=== PATIENT | male | born 1955 | race Caucasian/White ===

== ENCOUNTER → 2017-12-21 09:56 | Outpatient (CLI) | payer OTHER, SELFPAY ==
--- NOTE | 2017-12-21 09:57 | DI.RAD.S_ITS ---
PROCEDURE: XR KNEE LT 3V INDICATIONS: knee pain TECHNIQUE: 3 views of the knee were acquired. COMPARISON: [facility], , XR KNEE 3V LEFT, 09/27/2005, 10:37. FINDINGS: Bones: Fracture involving the superior and lateral margin of the patella is noted which is of indeterminate age. No suspicious bony lesions. Mild tricompartmental osteoarthritic degenerative changes. Soft tissues: No joint effusion. No suspicious soft tissue calcifications. IMPRESSION: 1. Patellar fracture of indeterminate chronicity. Please correlate with clinical findings. 2. Tricompartmental osteoarthritis. Dictated by: Radhika Botello MD, PhD on 12/21/2017 at 10:44 Approved by: Radhkia Botello MD, PhD on 12/21/2017 at 10:45
== END ==
PROVIDERS: PCP Family Medicine; Visit Provider Family Medicine
DX: S82.002A Unspecified fracture of left patella, initial encounter for closed fracture (principal); M17.12 Unilateral primary osteoarthritis, left knee; M25.562 Pain in left knee
CPT/HCPCS: 73562

== ENCOUNTER → 2018-01-02 07:22 | Outpatient (CLI) | payer OTHER, SELFPAY ==
--- NOTE | 2018-01-02 07:23 | DI.MRI.S_ITS ---
PROCEDURE: MR KNEE LT WO CON INDICATIONS: knee pain TECHNIQUE: Noncontrast sagittal PD fast spin echo and T2 fast spin echo with fat saturation, sagittal 3-D FLASH with fat saturation; coronal T1 spin echo and PD fast spin echo with fat saturation, and axial PD fast spin echo with fat saturation through the knee. COMPARISON: [facility], RG, XR KNEE 3V LEFT, 09/27/2005, 10:37. [facility], CR, XR KNEE LT 3V, 12/21/2017, 9:41. [facility], MR, KNEE WITH CONTRAST, 06/26/2015, 10:03. FINDINGS: Image quality: Excellent. Menisci: There is medial meniscal extrusion. There is large horizontal tear involving the posterior horn and body of the medial meniscus. The lateral meniscus demonstrates normal morphology and internal signal. The meniscal root ligaments appear intact. Cruciate ligaments: There may be partial tear involving the anterior medial bundle of the anterior cruciate ligament. The posterior cruciate ligament appears intact. Medial structures: There is grade 2 sprain of the anterior superior aspect of the medial collateral ligament. The meniscocapsular junction appear intact. Visualized portions of the pes anserinus tendons appear normal. No abnormal bursal fluid. Lateral structures: The lateral collateral ligament, long and short heads of the biceps femoris tendon appear intact. The popliteus tendon appears normal; the popliteofibular ligament appears intact. The posterosuperior and anteroinferior popliteomeniscal fascicles appear intact. The arcuate and fabellofibular ligaments appear intact, on either side of the lateral inferior geniculate artery. Iliotibial band appears normal. Anterior structures: The quadriceps and patellar tendons appear intact. Patellar alignment is normal. No femoral trochlear dysplasia or ventral trochlear prominence. No edema in the infrapatellar fat pad. Bones and cartilage: There is old patellar fracture in the superolateral aspect of patella with corticated fragments. There is no associated bone marrow contusions. There is marrow contusion in the medial femoral condyle. Full thickness cartilage defect is present in the weightbearing portion of the medial femoral condyle is present. There is mild cartilage thinning and fibrillation involving the lateral femorotibial compartment, as well as the patellofemoral compartment. Joint space: There is moderate knee joint effusion. No Dominguez's cyst. Normal appearing synovial plicae are incidentally noted. IMPRESSION: 1. Large tear of the posterior horn and body of the medial meniscus. 2. Suspect partial thickness tear of the anterior cruciate ligament involving the anteromedial bundle. 3. Grade 2 sprain sprain of the medial collateral ligament. 4. Bone marrow edema in the medial femoral condyle. 5. Old patellar fracture. 6. Full-thickness cartilage defect in the weightbearing portion of the medial femoral condyle. 7. Moderate knee joint effusion. Dictated by: Bello Hammer M.D. on 01/02/2018 at 10:25 Transcribed by: SÁNCHEZ on 01/02/2018 at 10:36 Approved by: Bello Hammer M.D. on 01/02/2018 at 18:23
== END ==
PROVIDERS: Family Provider Family Medicine; PCP Family Medicine; Visit Provider Family Medicine
DX: S83.242A Other tear of medial meniscus, current injury, left knee, initial encounter (principal); S83.412A Sprain of medial collateral ligament of left knee, initial encounter; M25.462 Effusion, left knee; M25.562 Pain in left knee
CPT/HCPCS: 73721

== ENCOUNTER → 2018-03-23 07:02 | Outpatient (CLI) | payer OTHER, SELFPAY ==
[2018-03-23 08:26] LABS: Cholesterol 186 mg/dL (140-199); HDL Cholesterol 48 mg/dL (40-60); LDL Cholesterol Calculated 118 mg/dL (<100); Triglycerides 99 mg/dL (35-150)
== END ==
PROVIDERS: PCP Family Medicine; Visit Provider Family Medicine
DX: E78.2 Mixed hyperlipidemia (principal)
CPT/HCPCS: 36415; 80061

== ENCOUNTER → 2018-12-21 07:24 | Outpatient (CLI) | payer OTHER, SELFPAY ==
[2018-12-21 09:00] LABS: Cholesterol 173 mg/dL (140-199); HDL Cholesterol 41 mg/dL (40-60); LDL Cholesterol Calculated 103 mg/dL (<100); Triglycerides 146 mg/dL (35-150)
== END ==
PROVIDERS: PCP Family Medicine; Visit Provider Family Medicine
DX: E78.2 Mixed hyperlipidemia (principal)
CPT/HCPCS: 36415; 80061

== ENCOUNTER → 2020-11-20 07:12 | Outpatient (CLI) | payer OTHER, SELFPAY ==
[2020-11-20 07:59] LABS: Add Manual Diff / Slide Review NO; Basophils Absolute Auto 100 /uL (0-100); Basophils Percent Auto 1.1 % (0-2); Eosinophils Absolute Auto 500 /uL (0-450); Eosinophils Percent Auto 8.5 % (2-4); Hematocrit 42.2 % (41-53); Hemoglobin 14.3 g/dL (13.5-17.5); Lymphocytes Absolute Auto 1300 /uL (1100-4500); Lymphocytes Percent Auto 23.9 % (25-40); Mean Corpuscular Hemoglobin 29.3 PG (26-34); Mean Corpuscular Volume 86.3 fL (80-100); Monocytes Absolute Auto 400 /uL (0-900); Monocytes Percent Auto 6.8 % (3-14); Neutrophils Absolute Auto 3300 /uL (1500-7000); Neutrophils Percent Auto 59.7 % (50-75); Platelet Count 207 X10^3/uL (150-400); Red Blood Cell Count 4.89 X10^6/uL (4.5-5.9); Red Cell Distribution Width 13.3 % (11.6-14.8); White Blood Cell Count 5.6 X10^3/uL (4.5-11.0)
[2020-11-20 08:04] LABS: Hemoglobin A1C% w Est Avg Glu 5.4 % (4.0-6.0)
[2020-11-20 08:27] LABS: Alanine Aminotransferase 24 IU/L (<50); Albumin 4.2 g/dL (3.5-5.0); Albumin Globulin Ratio 1.5 (1.0-2.8); Alkaline Phosphatase 86 U/L (38-126); Aspartate Aminotransferase 35 IU/L (17-59); BUN Creatinine Ratio 23.3 (6-22); Bilirubin Total 0.5 mg/dL (0.2-1.3); Blood Urea Nitrogen 20 mg/dL (9-20); Calcium 9.6 mg/dL (8.4-10.2); Carbon Dioxide 27 mmol/L (22-32); Chloride 105 mmol/L (98-107); Cholesterol 211 mg/dL (140-199); Estimated Glomerular Filt Rate > 60.0 mL/min (>60); Globulin 2.8 g/dL (1.7-4.1); Glucose 101 mg/dL (80-110); HDL Cholesterol 55 mg/dL (40-60); HEMOLYSIS < 15 (0-50); LDL Cholesterol Calculated 134 mg/dL (<100); Potassium 5.2 mmol/L (3.4-5.1); Sodium 138 mmol/L (137-145); Triglycerides 109 mg/dL (35-150)
[2020-11-20 08:51] LABS: Prostate Specific Antigen Scrn 1.73 ng/mL (0.1-4.0)
== END ==
PROVIDERS: PCP Family Medicine; Referring Provider Family Medicine; Visit Provider Family Medicine
DX: E78.2 Mixed hyperlipidemia (principal); G62.9 Polyneuropathy, unspecified; Z12.5 Encounter for screening for malignant neoplasm of prostate
CPT/HCPCS: 36415; 80053; 80061; 83036; 85025; G0103

== ENCOUNTER → 2020-11-24 07:58 | Outpatient (CLI) | payer OTHER, SELFPAY ==
[2020-11-25 14:08] LABS: Fecal Immunochemical Test Negative (Negative)
== END ==
PROVIDERS: PCP Family Medicine; Referring Provider Family Medicine; Visit Provider Family Medicine
DX: Z12.11 Encounter for screening for malignant neoplasm of colon (principal)
CPT/HCPCS: 82274

== ENCOUNTER → 2022-05-24 15:59 | Outpatient (CLI) | payer OTHER, SELFPAY ==
--- NOTE | 2022-05-24 16:00 | DI.RAD.S_ITS ---
PROCEDURE: XR LUMBAR SPINE MIN 4V INDICATIONS: polyneuropathy, chronic low back pain TECHNIQUE: 5 views of the lumbar spine were acquired, including bilateral oblique views. COMPARISON: None. FINDINGS: Bones: 5 nonrib-bearing vertebrae are present. There is trace, approximately 3 millimeters of L2-L3 retrolisthesis. No vertebral body compression fractures. No suspicious bony lesions. Moderate L5-S1 degenerative disc disease. Mild L1-L2, L2-L3, L3-L4 and L4-L5 degenerative disc disease. Moderate L4-L5 and L5-S1 facet hypertrophy. Mild L3-L4 facet hypertrophy. Soft tissues: Overlying bowel gas pattern is normal. No suspicious soft tissue calcifications. Oblique images: Right L5 pars interarticularis defect. IMPRESSION: 1. Multilevel degenerative disc disease. 2. Multilevel facet arthropathy. 3. No acute fracture. No acute osseous lesion. If symptoms and/or clinical suspicion for pathology persists, evaluation with MRI should be considered for further assessment. 4. Right L5 pars interarticularis defect. Dictated by: Radhika Botello MD, PhD on 05/24/2022 at 16:34 Approved by: Radhika Botello MD, PhD on 05/24/2022 at 16:36
== END ==
PROVIDERS: PCP Family Medicine; Referring Provider Family Medicine; Visit Provider Family Medicine
DX: M51.36 Other intervertebral disc degeneration, lumbar region (principal); M51.37 Other intervertebral disc degeneration, lumbosacral region; M47.816 Spondylosis without myelopathy or radiculopathy, lumbar region; M47.817 Spondylosis without myelopathy or radiculopathy, lumbosacral region; M54.50 Low back pain, unspecified; G62.9 Polyneuropathy, unspecified; G89.29 Other chronic pain
CPT/HCPCS: 72110

== ENCOUNTER → 2022-05-25 07:29 | Outpatient (CLI) | payer OTHER, SELFPAY ==
[2022-05-25 08:08] LABS: Add Manual Diff / Slide Review NO; Basophils Absolute Auto 0 /uL (0-100); Basophils Percent Auto 0.8 % (0-2); Eosinophils Absolute Auto 300 /uL (0-450); Eosinophils Percent Auto 6.5 % (2-4); Hematocrit 39.4 % (41-53); Hemoglobin 13.4 g/dL (13.5-17.5); Lymphocytes Absolute Auto 1200 /uL (1100-4500); Lymphocytes Percent Auto 23.4 % (25-40); Mean Corpuscular Hemoglobin 28.5 PG (26-34); Mean Corpuscular Volume 83.8 fL (80-100); Monocytes Absolute Auto 300 /uL (0-900); Monocytes Percent Auto 6.6 % (3-14); Neutrophils Absolute Auto 3100 /uL (1500-7000); Neutrophils Percent Auto 62.7 % (50-75); Platelet Count 204 X10^3/uL (150-400); Red Cell Distribution Width 13.8 % (11.6-14.8); White Blood Cell Count 4.9 X10^3/uL (4.5-11.0)
[2022-05-25 11:46] LABS: TSH w/ Reflex to FT4 2.45 uIU/mL (0.47-4.68)
[2022-05-25 23:45] LABS: BUN Creatinine Ratio 19.3 (6-22); Blood Urea Nitrogen 16 mg/dL (9-20); Calcium 8.9 mg/dL (8.4-10.2); Carbon Dioxide 28 mmol/L (22-32); Chloride 104 mmol/L (98-107); Cholesterol 188 mg/dL (140-199); Estimated Glomerular Filt Rate > 60 mL/min (>60); Glucose 94 mg/dL (80-110); HDL Cholesterol 44 mg/dL (40-60); HEMOLYSIS 17 (0-50); LDL Cholesterol Calculated 121 mg/dL (<100); Potassium 4.5 mmol/L (3.4-5.1); Sodium 140 mmol/L (137-145); Triglycerides 113 mg/dL (35-150)
[2022-05-26 00:15] LABS: Prostate Specific Antigen Scrn 1.42 ng/mL (0.1-4.0)
== END ==
PROVIDERS: PCP Family Medicine; Referring Provider Family Medicine; Visit Provider Family Medicine
DX: E78.2 Mixed hyperlipidemia (principal); G62.9 Polyneuropathy, unspecified; M25.569 Pain in unspecified knee; Z12.5 Encounter for screening for malignant neoplasm of prostate; E87.5 Hyperkalemia
CPT/HCPCS: 36415; 80048; 80061; 84443; 85025; G0103

== ENCOUNTER 2022-09-22 15:15 | Outpatient (RCR) | payer OTHER, SELFPAY ==
--- NOTE | 2022-08-02 16:35 | PT.OIE ---
Current Diagnoses Polyneuropathy, unspecified (08/02/22) Other chronic pain (08/02/22) Pain in unspecified knee (08/02/22) Low back pain, unspecified (08/02/22) Past Medical History (Last Updated 12/19/17 @ 19:49 by Esme Xie) Acne (~1971) Fracture (~1967) Kidney stones Melanoma Plantar warts (~2014) Past Surgical History (Last Updated 12/19/17 @ 19:49 by Esme Xie) Anesthesia History of right knee surgery Status post appendectomy Visit Care Team Role Provider Type Shaggy Boyd MD Attending Provider Physician Family Provider Primary Care Provider Referring Provider Specialty: Family Practice Address: [address] [place] [address], [facility] Email: [email or web address] Physical Therapy Initial Evaluation PT-OP-A Visit Information Start: 08/02/22 10:54 Freq: Status: Active Protocol: Document 08/02/22 15:09 TH (Rec: 08/02/22 16:21 TH [id number]) Out-Patient Physical Therapy Visit Information Visit Information Visit Type Initial Evaluation Visit Note Pt states that his lower back and right/ left sciatica is acute on chronic. In March pt. had a flare up of lower back/right LE pain flared up. Pt states chronic pain has been interferring with his ability to hike, bike and other recreational activties. Visit Start Time 15:00 Visit Stop Time 16:00 Total Visit Minutes 60 Visit Number 1 Number of PAIRER ODDS Visits 0 Precautions Precautions Cleared for ESTIM Bilateral peripheral neuropathy LEs PT-OP-B Current Condition Start: 08/02/22 10:54 Freq: Status: Active Protocol: Document 08/02/22 15:09 TH (Rec: 08/02/22 16:21 TH [id number]) Current Condition History of Current Condition Current Complaints Lower back, right sciatica and right knee pain Prior Functional Status Baseline Function- ADL's Independent Baseline Function- Recreation/Hobbies IND though pain prevents pt. from doing things he enjoys such as biking, hiking. Current Functional Impairments (Reported) Functional Limitations- ADL's IND though has lower back pain . Functional Limitations- Mobility/Gait Prolonged sitting, standing bother symptoms. Functional Limitations- Recreation/ bikes, hikes Hobbies PT-OP-C Subjective Start: 08/02/22 10:54 Freq: Status: Active Protocol: Document 08/02/22 15:09 TH (Rec: 08/02/22 16:21 TH [id number]) OP-PT Subjective Patient Comments Patient Comments Pt wishes to get back to biking, working out Patient Questionnaires Oswestry Low Back Index Oswestry Impairment 20 to 39% Impaired (Score 20- 39) OP-PT Pain Assessment Location Pain Description Aching Frequency Frequent PT-OP-G Mobility & Gait Start: 08/02/22 10:54 Freq: Status: Active Protocol: Document 08/02/22 15:09 TH (Rec: 08/02/22 16:21 TH [id number]) OP Gait Assessment Comments Gait Comments Decreased lumbar rotation bilaterally when advacing LE forward. PT-OP-K Range of Motion Start: 08/02/22 10:54 Freq: Status: Active Protocol: Document 08/02/22 15:09 TH (Rec: 08/02/22 16:21 TH [id number]) Lumbar Spine Range of Motion Lumbar Spine Active Testing Position Standing Flexion 40 Rotation Left 20 Rotation Right 20 Comments left trunk ant.rotated, right hip ant. rotated, right SI joint hypomobile, right leg functionally longer than left, increased thoracic extension, right knee lacks extension post injury/arthroscopic surgeries, increased APT PT-OP-Q Treatments Start: 08/02/22 10:54 Freq: Status: Active Protocol: Document 08/02/22 15:09 TH (Rec: 08/02/22 16:21 TH [id number]) Therapeutic Exercises Other Exercises HEP Comments see self care HEP [facility] Manual Therapy Treatment Manual Techniques Manual Body Position Prone Comments Right SI joint mobilzation Self-Care/Home Management Treatment Education Patient Education Home Exercise Program Other Education Access Code: [email or web address] URL: [email or web address] Date: 08/02/2022 Prepared by: Aruna Medel Exercises Supine Quadriceps Stretch with Strap on Table - 1 x daily - 7 x weekly - 1 sets - 3 reps - 30 sec hold Seated Lumbar Flexion Stretch - 1 x daily - 7 x weekly - 1 sets - 5 reps - 15-30 sec hold Supine Hamstring Stretch with Strap - 1 x daily - 7 x weekly - 1 sets - 3 reps - 30 sec hold PT-OP-T Assessment and Plan Start: 08/02/22 10:54 Freq: Status: Active Protocol: Document 08/02/22 15:09 TH (Rec: 08/02/22 16:21 TH [id number]) Physical Therapy Assessment Rehab Potential Rehabilitation Potential Good Goals Two Impairment Difficult to walk longer distances. Short Term Goal (STG) Pt will be able to ambulate >= 2 miles with pain < =3/10. STG Duration 6 weeks Senior Care Goal (LTG) Pt will be able to ambulate 5 miles with minimal to no pain. One Impairment Difficult to sit/stand for prolonged periods of time. Short Term Goal (STG) Pt will be able to sit/stand for > = 30 min wigth pain > = 3/10. STG Duration 6 weeks Escalator Constructor Goal (LTG) Pt will be able to sit/stand > 45 min with minimal to no lower back/sciatic pain. LTG Duration 12 weeks Assessment Summary Assessment Pt presents with muscle imbalance of core and hip muscles in addition to decreased right knee extension leading to increased strain on lumbar paraspinals /gluteus muscles. Physical Therapy Plan Frequency and Duration Frequency of Treatment 1x/Week Duration of treatment (weeks) 12 Plan of Care Start Date 08/02/22 Plan of Care End Date 10/25/22 Therapeutic Interventions Therapeutic Interventions Gait Training,Home Exercise Program,Joint Mobilizations, Manual Therapy,Neuromuscular Re-education,Patient/Caregiver Education,Self-Care/Home Management,Soft Tissue Mobilization,Taping, Therapeutic Activities, Therapeutic Exercises Modalities Cold Pack/Ice Massage,Electric Stimulation,Hot Packs, Ultrasound
--- NOTE | 2022-08-02 16:36 | PT.OPPOC ---
Physical, Occupational & Speech Therapy At [facility] Current Diagnoses Polyneuropathy, unspecified (08/02/22) Other chronic pain (08/02/22) Pain in unspecified knee (08/02/22) Low back pain, unspecified (08/02/22) Visit Care Team Role Provider Type Shaggy Boyd MD Attending Provider Physician Family Provider Primary Care Provider Referring Provider Specialty: Family Practice Address: [address] [place] [address], [facility] Email: [email or web address] Plan Of Care PT-OP-T Assessment and Plan Start: 08/02/22 10:54 Freq: Status: Active Protocol: Document 08/02/22 15:09 TH (Rec: 08/02/22 16:21 TH [id number]) Physical Therapy Assessment Rehab Potential Rehabilitation Potential Good Goals Two Impairment Difficult to walk longer distances. Short Term Goal (STG) Pt will be able to ambulate >= 2 miles with pain < =3/10. STG Duration 6 weeks Senior Care Goal (LTG) Pt will be able to ambulate 5 miles with minimal to no pain. One Impairment Difficult to sit/stand for prolonged periods of time. Short Term Goal (STG) Pt will be able to sit/stand for > = 30 min wigth pain > = 3/10. STG Duration 6 weeks Quill Machine Tender Goal (LTG) Pt will be able to sit/stand > 45 min with minimal to no lower back/sciatic pain. LTG Duration 12 weeks Assessment Summary Assessment Pt presents with muscle imbalance of core and hip muscles in addition to decreased right knee extension leading to increased strain on lumbar paraspinals /gluteus muscles. Physical Therapy Plan Frequency and Duration Frequency of Treatment 1x/Week Duration of treatment (weeks) 12 Plan of Care Start Date 08/02/22 Plan of Care End Date 10/25/22 Therapeutic Interventions Therapeutic Interventions Gait Training,Home Exercise Program,Joint Mobilizations, Manual Therapy,Neuromuscular Re-education,Patient/Caregiver Education,Self-Care/Home Management,Soft Tissue Mobilization,Taping, Therapeutic Activities, Therapeutic Exercises Modalities Cold Pack/Ice Massage,Electric Stimulation,Hot Packs, Ultrasound Plan of Care Dates Plan of Care Start Date 08/02/22 Plan of Care End Date 10/25/22 Electronically Signed by: Aruna Medel, PT 08/02/22 9412 If you are in agreement with this Plan of Care, please return a signed and dated copy. I have reviewed this Plan of Care and certify that the skilled therapy services above are required to meet the patient?s needs. Physician Signature Date Printed Name and Credentials Clinical Instructor Signature Printed Name and Credentials
--- NOTE | 2022-08-09 16:16 | PT.OTN ---
Current Diagnoses Polyneuropathy, unspecified (08/09/22) Other chronic pain (08/09/22) Pain in unspecified knee (08/09/22) Low back pain, unspecified (08/09/22) Physical Therapy Treatment Note PT-OP-A Visit Information Start: 08/02/22 10:54 Freq: Status: Active Protocol: Document 08/09/22 15:15 TH (Rec: 08/09/22 16:15 TH [id number]) Out-Patient Physical Therapy Visit Information Visit Information Visit Type Treatment Note Visit Note Pt reports he hasn't been able to be consistent with HEP. Symptoms about the same. Visit Start Time 15:15 Visit Stop Time 16:00 Total Visit Minutes 45 Visit Number 2 Number of FRONT END WEB DESIGNER Visits 0 PT-OP-B Current Condition Start: 08/02/22 10:54 Freq: Status: Active Protocol: Document 08/02/22 15:09 TH (Rec: 08/02/22 16:21 TH [id number]) Current Condition History of Current Condition Current Complaints Lower back, right sciatica and right knee pain Prior Functional Status Baseline Function- ADL's Independent Baseline Function- Recreation/Hobbies IND though pain prevents pt. from doing things he enjoys such as biking, hiking. Current Functional Impairments (Reported) Functional Limitations- ADL's IND though has lower back pain . Functional Limitations- Mobility/Gait Prolonged sitting, standing bother symptoms. Functional Limitations- Recreation/ bikes, hikes Hobbies PT-OP-C Subjective Start: 08/02/22 10:54 Freq: Status: Active Protocol: Document 08/09/22 15:15 TH (Rec: 08/09/22 16:15 TH [id number]) OP-PT Subjective Patient Comments Patient Comments Pt reports he has not been consistent with HEP. PT-OP-G Mobility & Gait Start: 08/02/22 10:54 Freq: Status: Active Protocol: Document 08/02/22 15:09 TH (Rec: 08/02/22 16:21 TH [id number]) OP Gait Assessment Comments Gait Comments Decreased lumbar rotation bilaterally when advacing LE forward. PT-OP-K Range of Motion Start: 08/02/22 10:54 Freq: Status: Active Protocol: Document 08/02/22 15:09 TH (Rec: 08/02/22 16:21 TH [id number]) Lumbar Spine Range of Motion Lumbar Spine Active Testing Position Standing Flexion 40 Rotation Left 20 Rotation Right 20 Comments left trunk ant.rotated, right hip ant. rotated, right SI joint hypomobile, right leg functionally longer than left, increased thoracic extension, right knee lacks extension post injury/arthroscopic surgeries, increased APT PT-OP-Q Treatments Start: 08/02/22 10:54 Freq: Status: Active Protocol: Document 08/09/22 15:15 TH (Rec: 08/09/22 16:15 TH [id number]) Therapeutic Exercises Other Exercises hip flexor release Side bilateral Comments hip flexor release with mini medicine ball Manual Therapy Treatment Manual Techniques Passive lumbar rotation Body Position Prone Comments Passive lumbar rotation with release of contralateral lumbar paraspinals hip flexor stretch Comments Hip flex stretch off EOB with massage roller to quads. PT-OP-T Assessment and Plan Start: 08/02/22 10:54 Freq: Status: Active Protocol: Document 08/09/22 15:15 TH (Rec: 08/09/22 16:15 TH [id number]) Physical Therapy Assessment Goals Two Impairment Difficult to walk longer distances. Short Term Goal (STG) Pt will be able to ambulate >= 2 miles with pain < =3/10. STG Duration 6 weeks Insurance Claims Specialist Goal (LTG) Pt will be able to ambulate 5 miles with minimal to no pain. One Impairment Difficult to sit/stand for prolonged periods of time. Short Term Goal (STG) Pt will be able to sit/stand for > = 30 min wigth pain > = 3/10. STG Duration 6 weeks Jail Goal (LTG) Pt will be able to sit/stand > 45 min with minimal to no lower back/sciatic pain. LTG Duration 12 weeks Physical Therapy Plan Frequency and Duration Frequency of Treatment 1x/Week Duration of treatment (weeks) 12 Plan of Care Start Date 08/02/22 Plan of Care End Date 10/25/22 Therapeutic Interventions Therapeutic Interventions Gait Training,Home Exercise Program,Joint Mobilizations, Manual Therapy,Neuromuscular Re-education,Patient/Caregiver Education,Self-Care/Home Management,Soft Tissue Mobilization,Taping, Therapeutic Activities, Therapeutic Exercises Modalities Cold Pack/Ice Massage,Electric Stimulation,Hot Packs, Ultrasound
--- NOTE | 2022-08-11 16:25 | PT.OTN ---
Current Diagnoses Polyneuropathy, unspecified (08/11/22) Other chronic pain (08/11/22) Pain in unspecified knee (08/11/22) Low back pain, unspecified (08/11/22) Physical Therapy Treatment Note PT-OP-A Visit Information Start: 08/02/22 10:54 Freq: Status: Active Protocol: Document 08/11/22 15:22 TH (Rec: 08/11/22 16:24 TH [id number]) Out-Patient Physical Therapy Visit Information Visit Information Visit Type Treatment Note Visit Start Time 15:15 Visit Stop Time 16:00 Total Visit Minutes 45 Visit Number 3 Number of FLUID PUMP OPERATOR Visits 0 PT-OP-B Current Condition Start: 08/02/22 10:54 Freq: Status: Active Protocol: Document 08/02/22 15:09 TH (Rec: 08/02/22 16:21 TH [id number]) Current Condition History of Current Condition Current Complaints Lower back, right sciatica and right knee pain Prior Functional Status Baseline Function- ADL's Independent Baseline Function- Recreation/Hobbies IND though pain prevents pt. from doing things he enjoys such as biking, hiking. Current Functional Impairments (Reported) Functional Limitations- ADL's IND though has lower back pain . Functional Limitations- Mobility/Gait Prolonged sitting, standing bother symptoms. Functional Limitations- Recreation/ bikes, hikes Hobbies PT-OP-C Subjective Start: 08/02/22 10:54 Freq: Status: Active Protocol: Document 08/11/22 15:22 TH (Rec: 08/11/22 16:24 TH [id number]) OP-PT Subjective Patient Comments Patient Comments Pt states symptoms still about the same. PT-OP-G Mobility & Gait Start: 08/02/22 10:54 Freq: Status: Active Protocol: Document 08/02/22 15:09 TH (Rec: 08/02/22 16:21 TH [id number]) OP Gait Assessment Comments Gait Comments Decreased lumbar rotation bilaterally when advacing LE forward. PT-OP-K Range of Motion Start: 08/02/22 10:54 Freq: Status: Active Protocol: Document 08/02/22 15:09 TH (Rec: 08/02/22 16:21 TH [id number]) Lumbar Spine Range of Motion Lumbar Spine Active Testing Position Standing Flexion 40 Rotation Left 20 Rotation Right 20 Comments left trunk ant.rotated, right hip ant. rotated, right SI joint hypomobile, right leg functionally longer than left, increased thoracic extension, right knee lacks extension post injury/arthroscopic surgeries, increased APT PT-OP-Q Treatments Start: 08/02/22 10:54 Freq: Status: Active Protocol: Document 08/11/22 15:22 TH (Rec: 08/11/22 16:24 TH [id number]) Therapeutic Exercises Other Exercises hamstring sets Comments seated with green band and focus on knee / hip alignment Manual Therapy Treatment Manual Techniques IASTM Comments IASTM right semi mem./ tendinous hamstring. hip flexor stretch Comments Hip flex stretch off EOB with massage roller to quads. Self-Care/Home Management Treatment Education Patient Education Home Exercise Program Caregiver Education Added: hamstring sets Other Education Access Code: [email or web address] URL: [email or web address] Date: 08/11/2022 Prepared by: Aruna Medel Exercises Seated Lumbar Flexion Stretch - 1 x daily - 7 x weekly - 1 sets - 5 reps - 15-30 sec hold Supine Hamstring Stretch with Strap - 1 x daily - 7 x weekly - 1 sets - 3 reps - 30 sec hold Kneeling Hip Flexor Stretch - 1 x daily - 7 x weekly - 1 sets - 3 reps - 30 sec hold Seated Hamstring Curl with Anchored Resistance - 1 x daily - 7 x weekly - 2-3 sets - 10 reps PT-OP-T Assessment and Plan Start: 08/02/22 10:54 Freq: Status: Active Protocol: Document 08/11/22 15:22 TH (Rec: 08/11/22 16:24 TH [id number]) Physical Therapy Assessment Goals Two Impairment Difficult to walk longer distances. Short Term Goal (STG) Pt will be able to ambulate >= 2 miles with pain < =3/10. STG Duration 6 weeks Half-Way Goal (LTG) Pt will be able to ambulate 5 miles with minimal to no pain. One Impairment Difficult to sit/stand for prolonged periods of time. Short Term Goal (STG) Pt will be able to sit/stand for > = 30 min wigth pain > = 3/10. STG Duration 6 weeks Half-Way Goal (LTG) Pt will be able to sit/stand > 45 min with minimal to no lower back/sciatic pain. LTG Duration 12 weeks Assessment Summary Assessment No change in symptoms thus far . Right knee rom limitations are likely main contributor to issues with hip/back pain. Per pt. he suffered a hyperextension injury a few years back and post arthroscopic surgery MD stated he may not be able to acheive full extension. Noted soft tissue restrctions and muscle imbalance of HM/quads and therefore working to improve knee extension. Physical Therapy Plan Frequency and Duration Frequency of Treatment 1x/Week Duration of treatment (weeks) 12 Plan of Care Start Date 08/02/22 Plan of Care End Date 10/25/22 Therapeutic Interventions Therapeutic Interventions Gait Training,Home Exercise Program,Joint Mobilizations, Manual Therapy,Neuromuscular Re-education,Patient/Caregiver Education,Self-Care/Home Management,Soft Tissue Mobilization,Taping, Therapeutic Activities, Therapeutic Exercises Modalities Cold Pack/Ice Massage,Electric Stimulation,Hot Packs, Ultrasound Next Visit Focus/Plan Next Visit Plan anatomical posture APT/PPT Glute/med//max.
--- NOTE | 2022-08-16 16:33 | PT.OTN ---
Current Diagnoses Polyneuropathy, unspecified (08/16/22) Other chronic pain (08/16/22) Pain in unspecified knee (08/16/22) Low back pain, unspecified (08/16/22) Physical Therapy Treatment Note PT-OP-A Visit Information Start: 08/02/22 10:54 Freq: Status: Active Protocol: Document 08/16/22 16:26 TH (Rec: 08/16/22 16:33 TH [id number]) Out-Patient Physical Therapy Visit Information Visit Information Visit Type Treatment Note Visit Start Time 15:15 Visit Stop Time 16:00 Total Visit Minutes 45 Visit Number 4 Number of PIGGERY WORKER Visits 0 PT-OP-B Current Condition Start: 08/02/22 10:54 Freq: Status: Active Protocol: Document 08/02/22 15:09 TH (Rec: 08/02/22 16:21 TH [id number]) Current Condition History of Current Condition Current Complaints Lower back, right sciatica and right knee pain Prior Functional Status Baseline Function- ADL's Independent Baseline Function- Recreation/Hobbies IND though pain prevents pt. from doing things he enjoys such as biking, hiking. Current Functional Impairments (Reported) Functional Limitations- ADL's IND though has lower back pain . Functional Limitations- Mobility/Gait Prolonged sitting, standing bother symptoms. Functional Limitations- Recreation/ bikes, hikes Hobbies PT-OP-C Subjective Start: 08/02/22 10:54 Freq: Status: Active Protocol: Document 08/16/22 16:26 TH (Rec: 08/16/22 16:33 TH [id number]) OP-PT Subjective Patient Comments Patient Comments Pt reports symptoms same. PT-OP-G Mobility & Gait Start: 08/02/22 10:54 Freq: Status: Active Protocol: Document 08/02/22 15:09 TH (Rec: 08/02/22 16:21 TH [id number]) OP Gait Assessment Comments Gait Comments Decreased lumbar rotation bilaterally when advacing LE forward. PT-OP-K Range of Motion Start: 08/02/22 10:54 Freq: Status: Active Protocol: Document 08/02/22 15:09 TH (Rec: 08/02/22 16:21 TH [id number]) Lumbar Spine Range of Motion Lumbar Spine Active Testing Position Standing Flexion 40 Rotation Left 20 Rotation Right 20 Comments left trunk ant.rotated, right hip ant. rotated, right SI joint hypomobile, right leg functionally longer than left, increased thoracic extension, right knee lacks extension post injury/arthroscopic surgeries, increased APT PT-OP-Q Treatments Start: 08/02/22 10:54 Freq: Status: Active Protocol: Document 08/16/22 16:26 TH (Rec: 08/16/22 16:33 TH [id number]) Therapeutic Exercises Other Exercises HS stretch Comments 1 x 3 hold 30 sec monster walk Comments 4 x 10 fet side stepping Comments 4 x 10 feet hamstring sets Comments 1 x 10 Manual Therapy Treatment Manual Techniques Knee extension stretch / manual Comments right knee Tack and stretch Comments Right HS IASTM Comments right medial HS hip flexor stretch Comments Hip flex stretch off EOB with massage roller to quads. PT-OP-T Assessment and Plan Start: 08/02/22 10:54 Freq: Status: Active Protocol: Document 08/16/22 16:26 TH (Rec: 08/16/22 16:33 TH [id number]) Physical Therapy Assessment Goals Two Impairment Difficult to walk longer distances. Short Term Goal (STG) Pt will be able to ambulate >= 2 miles with pain < =3/10. STG Duration 6 weeks [facility] Goal (LTG) Pt will be able to ambulate 5 miles with minimal to no pain. One Impairment Difficult to sit/stand for prolonged periods of time. Short Term Goal (STG) Pt will be able to sit/stand for > = 30 min wigth pain > = 3/10. STG Duration 6 weeks [facility] Goal (LTG) Pt will be able to sit/stand > 45 min with minimal to no lower back/sciatic pain. LTG Duration 12 weeks Assessment Summary Assessment Pt has not made much progress in regard to pain symptoms. However noted slightly improved knee extension ( right) after todays rx. Improved r knee extension will ultimately help to improve hip alignment and decrease strain on lower back. Physical Therapy Plan Frequency and Duration Frequency of Treatment 1x/Week Duration of treatment (weeks) 12 Plan of Care Start Date 08/02/22 Plan of Care End Date 10/25/22 Therapeutic Interventions Therapeutic Interventions Gait Training,Home Exercise Program,Joint Mobilizations, Manual Therapy,Neuromuscular Re-education,Patient/Caregiver Education,Self-Care/Home Management,Soft Tissue Mobilization,Taping, Therapeutic Activities, Therapeutic Exercises Modalities Cold Pack/Ice Massage,Electric Stimulation,Hot Packs, Ultrasound Next Visit Focus/Plan Next Visit Plan anatomical posture APT/PPT Glute/med//max.
--- NOTE | 2022-08-18 16:16 | PT.OTN ---
Current Diagnoses Polyneuropathy, unspecified (08/18/22) Other chronic pain (08/18/22) Pain in unspecified knee (08/18/22) Low back pain, unspecified (08/18/22) Physical Therapy Treatment Note PT-OP-A Visit Information Start: 08/02/22 10:54 Freq: Status: Active Protocol: Document 08/18/22 16:05 TH (Rec: 08/18/22 16:16 TH [id number]) Out-Patient Physical Therapy Visit Information Visit Information Visit Type Treatment Note Visit Start Time 15:15 Visit Stop Time 16:00 Total Visit Minutes 45 Visit Number 5 Number of SHIPPER RECEIVER Visits 0 PT-OP-B Current Condition Start: 08/02/22 10:54 Freq: Status: Active Protocol: Document 08/02/22 15:09 TH (Rec: 08/02/22 16:21 TH [id number]) Current Condition History of Current Condition Current Complaints Lower back, right sciatica and right knee pain Prior Functional Status Baseline Function- ADL's Independent Baseline Function- Recreation/Hobbies IND though pain prevents pt. from doing things he enjoys such as biking, hiking. Current Functional Impairments (Reported) Functional Limitations- ADL's IND though has lower back pain . Functional Limitations- Mobility/Gait Prolonged sitting, standing bother symptoms. Functional Limitations- Recreation/ bikes, hikes Hobbies PT-OP-C Subjective Start: 08/02/22 10:54 Freq: Status: Active Protocol: Document 08/18/22 16:05 TH (Rec: 08/18/22 16:16 TH [id number]) OP-PT Subjective Patient Comments Patient Comments Pt states he has been having some right buttock pain and lateral thigh to ankle pain over the weekend. PT-OP-G Mobility & Gait Start: 08/02/22 10:54 Freq: Status: Active Protocol: Document 08/02/22 15:09 TH (Rec: 08/02/22 16:21 TH [id number]) OP Gait Assessment Comments Gait Comments Decreased lumbar rotation bilaterally when advacing LE forward. PT-OP-K Range of Motion Start: 08/02/22 10:54 Freq: Status: Active Protocol: Document 08/18/22 16:05 TH (Rec: 08/18/22 16:16 TH [id number]) Knee Goniometric Range of Motion Knee Right Patient Position Supine Comments Pre manual therapy at start of PT -20 post man. therapy last two visits -14 PT-OP-Q Treatments Start: 08/02/22 10:54 Freq: Status: Active Protocol: Document 08/18/22 16:05 TH (Rec: 08/18/22 16:16 TH [id number]) Therapeutic Exercises Other Exercises piriformis stretch Comments x 3 right wall glides Comments right lateral wall glide x 3 hold 10 sec Manual Therapy Treatment Manual Techniques Knee extension stretch / manual Comments right knee x 4 30 sec holds IASTM Comments bilat. lumbar paraspinals PT-OP-T Assessment and Plan Start: 08/02/22 10:54 Freq: Status: Active Protocol: Document 08/18/22 16:05 TH (Rec: 08/18/22 16:16 TH [id number]) Physical Therapy Assessment Goals Two Impairment Difficult to walk longer distances. Short Term Goal (STG) Pt will be able to ambulate >= 2 miles with pain < =3/10. STG Duration 6 weeks Elevator Repairer Helper Goal (LTG) Pt will be able to ambulate 5 miles with minimal to no pain. One Impairment Difficult to sit/stand for prolonged periods of time. Short Term Goal (STG) Pt will be able to sit/stand for > = 30 min wigth pain > = 3/10. STG Duration 6 weeks [facility] Goal (LTG) Pt will be able to sit/stand > 45 min with minimal to no lower back/sciatic pain. LTG Duration 12 weeks Assessment Summary Assessment Pt making steady progress as demonstrated by improving knee extension with swing through leading to improved hip / lumbar spine stability. Will continue to improve knee extension and hip/core strength. Physical Therapy Plan Frequency and Duration Frequency of Treatment 1x/Week Duration of treatment (weeks) 12 Plan of Care Start Date 08/02/22 Plan of Care End Date 10/25/22 Therapeutic Interventions Therapeutic Interventions Gait Training,Home Exercise Program,Joint Mobilizations, Manual Therapy,Neuromuscular Re-education,Patient/Caregiver Education,Self-Care/Home Management,Soft Tissue Mobilization,Taping, Therapeutic Activities, Therapeutic Exercises Modalities Cold Pack/Ice Massage,Electric Stimulation,Hot Packs, Ultrasound Next Visit Focus/Plan Next Visit Plan work on knee extension hip/core strength
--- NOTE | 2022-08-23 16:18 | PT.OTN ---
Current Diagnoses Polyneuropathy, unspecified (08/23/22) Other chronic pain (08/23/22) Pain in unspecified knee (08/23/22) Low back pain, unspecified (08/23/22) Physical Therapy Treatment Note PT-OP-A Visit Information Start: 08/02/22 10:54 Freq: Status: Active Protocol: Document 08/23/22 15:21 TH (Rec: 08/23/22 16:18 TH [id number]) Out-Patient Physical Therapy Visit Information Visit Information Visit Type Treatment Note Visit Start Time 15:15 Visit Stop Time 16:00 Total Visit Minutes 45 Visit Number 6 Number of CRUDE UNIT OPERATOR Visits 0 PT-OP-B Current Condition Start: 08/02/22 10:54 Freq: Status: Active Protocol: Document 08/02/22 15:09 TH (Rec: 08/02/22 16:21 TH [id number]) Current Condition History of Current Condition Current Complaints Lower back, right sciatica and right knee pain Prior Functional Status Baseline Function- ADL's Independent Baseline Function- Recreation/Hobbies IND though pain prevents pt. from doing things he enjoys such as biking, hiking. Current Functional Impairments (Reported) Functional Limitations- ADL's IND though has lower back pain . Functional Limitations- Mobility/Gait Prolonged sitting, standing bother symptoms. Functional Limitations- Recreation/ bikes, hikes Hobbies PT-OP-C Subjective Start: 08/02/22 10:54 Freq: Status: Active Protocol: Document 08/23/22 15:21 TH (Rec: 08/23/22 16:18 TH [id number]) OP-PT Subjective Patient Comments Patient Comments Pt reports symptoms same. Patient Reported Progress Improving PT-OP-G Mobility & Gait Start: 08/02/22 10:54 Freq: Status: Active Protocol: Document 08/02/22 15:09 TH (Rec: 08/02/22 16:21 TH [id number]) OP Gait Assessment Comments Gait Comments Decreased lumbar rotation bilaterally when advacing LE forward. PT-OP-K Range of Motion Start: 08/02/22 10:54 Freq: Status: Active Protocol: Document 08/23/22 15:21 TH (Rec: 08/23/22 16:18 TH [id number]) Knee Goniometric Range of Motion Knee Right Comments right knee -10 PT-OP-Q Treatments Start: 08/02/22 10:54 Freq: Status: Active Protocol: Document 08/23/22 15:21 TH (Rec: 08/23/22 16:18 TH [id number]) Therapeutic Exercises Other Exercises quick step toe taps Comments on floor for now ( no step) Manual Therapy Treatment Manual Techniques Manual Stretches Comments HS 2 x 60 sec hold Piriformis lumbar paraspinals 4 x 30 sec hold groin 2 x 30 sec all bilat. knee extension x3 30 sec holds PT-OP-T Assessment and Plan Start: 08/02/22 10:54 Freq: Status: Active Protocol: Document 08/23/22 15:21 TH (Rec: 08/23/22 16:18 TH [id number]) Physical Therapy Assessment Goals Two Impairment Difficult to walk longer distances. Short Term Goal (STG) Pt will be able to ambulate >= 2 miles with pain < =3/10. STG Duration 6 weeks [facility] Goal (LTG) Pt will be able to ambulate 5 miles with minimal to no pain. One Impairment Difficult to sit/stand for prolonged periods of time. Short Term Goal (STG) Pt will be able to sit/stand for > = 30 min wigth pain > = 3/10. STG Duration 6 weeks Bath Tester Goal (LTG) Pt will be able to sit/stand > 45 min with minimal to no lower back/sciatic pain. LTG Duration 12 weeks Assessment Summary Assessment Noted right knee extension continues to improve leading to imprpved hel strike on right. In additon, excessive right hip IR improving allowing pt to weight shift more equally when ambulating. Pt states multiple areas of pain symptoms are still about the same. Physical Therapy Plan Frequency and Duration Frequency of Treatment 1x/Week Duration of treatment (weeks) 12 Plan of Care Start Date 08/02/22 Plan of Care End Date 10/25/22 Therapeutic Interventions Therapeutic Interventions Gait Training,Home Exercise Program,Joint Mobilizations, Manual Therapy,Neuromuscular Re-education,Patient/Caregiver Education,Self-Care/Home Management,Soft Tissue Mobilization,Taping, Therapeutic Activities, Therapeutic Exercises Modalities Cold Pack/Ice Massage,Electric Stimulation,Hot Packs, Ultrasound Next Visit Focus/Plan Next Visit Plan work on knee extension hip/core strength
--- NOTE | 2022-08-25 16:27 | PT.OTN ---
Current Diagnoses Polyneuropathy, unspecified (08/25/22) Other chronic pain (08/25/22) Pain in unspecified knee (08/25/22) Low back pain, unspecified (08/25/22) Physical Therapy Treatment Note PT-OP-A Visit Information Start: 08/02/22 10:54 Freq: Status: Active Protocol: Document 08/25/22 15:15 TH (Rec: 08/25/22 16:27 TH [id number]) Out-Patient Physical Therapy Visit Information Visit Information Visit Type Treatment Note Visit Start Time 15:15 Visit Stop Time 16:00 Total Visit Minutes 45 Visit Number 7 Number of PRODUCTION GRADER Visits 0 PT-OP-B Current Condition Start: 08/02/22 10:54 Freq: Status: Active Protocol: Document 08/02/22 15:09 TH (Rec: 08/02/22 16:21 TH [id number]) Current Condition History of Current Condition Current Complaints Lower back, right sciatica and right knee pain Prior Functional Status Baseline Function- ADL's Independent Baseline Function- Recreation/Hobbies IND though pain prevents pt. from doing things he enjoys such as biking, hiking. Current Functional Impairments (Reported) Functional Limitations- ADL's IND though has lower back pain . Functional Limitations- Mobility/Gait Prolonged sitting, standing bother symptoms. Functional Limitations- Recreation/ bikes, hikes Hobbies PT-OP-C Subjective Start: 08/02/22 10:54 Freq: Status: Active Protocol: Document 08/25/22 15:15 TH (Rec: 08/25/22 16:27 TH [id number]) OP-PT Subjective Patient Comments Patient Comments Pt reports he has noticed increased stability with when walking. He had a flare up of right hip/ lower back pain after digging holes. Patient Reported Progress Improving PT-OP-G Mobility & Gait Start: 08/02/22 10:54 Freq: Status: Active Protocol: Document 08/02/22 15:09 TH (Rec: 08/02/22 16:21 TH [id number]) OP Gait Assessment Comments Gait Comments Decreased lumbar rotation bilaterally when advacing LE forward. PT-OP-K Range of Motion Start: 08/02/22 10:54 Freq: Status: Active Protocol: Document 08/23/22 15:21 TH (Rec: 08/23/22 16:18 TH [id number]) Knee Goniometric Range of Motion Knee Right Comments right knee -10 PT-OP-Q Treatments Start: 08/02/22 10:54 Freq: Status: Active Protocol: Document 08/25/22 15:15 TH (Rec: 08/25/22 16:27 TH [id number]) Therapeutic Exercises Other Exercises goblet squats Comments 10 to 20 lb 1 x10 leg press Comments 2 x 10 with focus on knee /hip alignment Box drills Comments resisted bow drills ( side stepping, monster walk and back steps ) / blue b Manual Therapy Treatment Manual Techniques ankle mob Body Position Supine Comments Talocrural mob right to promote PF SI JOint mob Comments BIlat. SI joint mob. PT-OP-T Assessment and Plan Start: 08/02/22 10:54 Freq: Status: Active Protocol: Document 08/25/22 15:15 TH (Rec: 08/25/22 16:27 TH [id number]) Physical Therapy Assessment Goals Two Impairment Difficult to walk longer distances. Short Term Goal (STG) Pt will be able to ambulate >= 2 miles with pain < =3/10. STG Duration 6 weeks Yarn Texturing Machine Operator Goal (LTG) Pt will be able to ambulate 5 miles with minimal to no pain. One Impairment Difficult to sit/stand for prolonged periods of time. Short Term Goal (STG) Pt will be able to sit/stand for > = 30 min wigth pain > = 3/10. STG Duration 6 weeks [facility] Goal (LTG) Pt will be able to sit/stand > 45 min with minimal to no lower back/sciatic pain. LTG Duration 12 weeks Assessment Summary Assessment Pt making steady progress as demonstrated by improved right knee extension leading to improved step length on the right during gait. Noted increased hip instability with weighted squats over 10 lbs. Focused on hip /knee alignment with squats today. Will assess squats next week to see ifthis improving with practice. Physical Therapy Plan Frequency and Duration Frequency of Treatment 1x/Week Duration of treatment (weeks) 12 Plan of Care Start Date 08/02/22 Plan of Care End Date 10/25/22 Therapeutic Interventions Therapeutic Interventions Gait Training,Home Exercise Program,Joint Mobilizations, Manual Therapy,Neuromuscular Re-education,Patient/Caregiver Education,Self-Care/Home Management,Soft Tissue Mobilization,Taping, Therapeutic Activities, Therapeutic Exercises Modalities Cold Pack/Ice Massage,Electric Stimulation,Hot Packs, Ultrasound Next Visit Focus/Plan Next Visit Plan work on knee extension hip/core strength
--- NOTE | 2022-08-30 09:56 | PT.OTN ---
Current Diagnoses Polyneuropathy, unspecified (08/30/22) Other chronic pain (08/30/22) Pain in unspecified knee (08/30/22) Low back pain, unspecified (08/30/22) Physical Therapy Treatment Note PT-OP-A Visit Information Start: 08/02/22 10:54 Freq: Status: Active Protocol: Document 08/30/22 09:01 TH (Rec: 08/30/22 09:56 TH [id number]) Out-Patient Physical Therapy Visit Information Visit Information Visit Type Treatment Note Visit Start Time 09:00 Visit Stop Time 09:45 Total Visit Minutes 45 Visit Number 8 Number of LIE DETECTOR OPERATOR Visits 0 PT-OP-B Current Condition Start: 08/02/22 10:54 Freq: Status: Active Protocol: Document 08/02/22 15:09 TH (Rec: 08/02/22 16:21 TH [id number]) Current Condition History of Current Condition Current Complaints Lower back, right sciatica and right knee pain Prior Functional Status Baseline Function- ADL's Independent Baseline Function- Recreation/Hobbies IND though pain prevents pt. from doing things he enjoys such as biking, hiking. Current Functional Impairments (Reported) Functional Limitations- ADL's IND though has lower back pain . Functional Limitations- Mobility/Gait Prolonged sitting, standing bother symptoms. Functional Limitations- Recreation/ bikes, hikes Hobbies PT-OP-C Subjective Start: 08/02/22 10:54 Freq: Status: Active Protocol: Document 08/30/22 09:01 TH (Rec: 08/30/22 09:56 TH [id number]) OP-PT Subjective Patient Comments Patient Comments Pt states that he is just starting to feel some difference in flexibility and decreased pain. Patient Reported Progress Improving PT-OP-G Mobility & Gait Start: 08/02/22 10:54 Freq: Status: Active Protocol: Document 08/02/22 15:09 TH (Rec: 08/02/22 16:21 TH [id number]) OP Gait Assessment Comments Gait Comments Decreased lumbar rotation bilaterally when advacing LE forward. PT-OP-K Range of Motion Start: 08/02/22 10:54 Freq: Status: Active Protocol: Document 08/23/22 15:21 TH (Rec: 08/23/22 16:18 TH [id number]) Knee Goniometric Range of Motion Knee Right Comments right knee -10 PT-OP-Q Treatments Start: 08/02/22 10:54 Freq: Status: Active Protocol: Document 08/30/22 09:01 TH (Rec: 08/30/22 09:56 TH [id number]) Therapeutic Exercises Standing Exercises rib tuck Comments 1 x 10 5 sec hold pelvic floor/TA Comments 1 x10 5 sec hold Other Exercises goblet squats Comments 1 x 10 with 20 lbs and with TA activ. Manual Therapy Treatment Manual Techniques Passive lumbar rotation Comments 1 x 10 hip flexor stretch Comments hip flexor stretch off EOB with massag roller to qudas. Manual stretching hip flxoer off EOB( hip ext/knee flex) PT-OP-T Assessment and Plan Start: 08/02/22 10:54 Freq: Status: Active Protocol: Document 08/30/22 09:01 TH (Rec: 08/30/22 09:56 TH [id number]) Physical Therapy Assessment Assessment Summary Assessment Pt is making good progres as demonstrated by improving flexibility and decreased symptoms. Noted hips level and leg length has returned to normal. Started core ex. static and with dynamic activities ( weighted squats) to mimic work activities. Noted improved right hip stability with TA activation. Instructed pt to activate TA when performing work duties for improved stability. Physical Therapy Plan Frequency and Duration Frequency of Treatment 1x/Week Duration of treatment (weeks) 12 Plan of Care Start Date 08/02/22 Plan of Care End Date 10/25/22 Therapeutic Interventions Therapeutic Interventions Gait Training,Home Exercise Program,Joint Mobilizations, Manual Therapy,Neuromuscular Re-education,Patient/Caregiver Education,Self-Care/Home Management,Soft Tissue Mobilization,Taping, Therapeutic Activities, Therapeutic Exercises Modalities Cold Pack/Ice Massage,Electric Stimulation,Hot Packs, Ultrasound Next Visit Focus/Plan Next Visit Plan work on knee extension hip/core strength
--- NOTE | 2022-09-06 16:11 | PT.OTN ---
Current Diagnoses Polyneuropathy, unspecified (09/06/22) Other chronic pain (09/06/22) Pain in unspecified knee (09/06/22) Low back pain, unspecified (09/06/22) Physical Therapy Treatment Note PT-OP-A Visit Information Start: 08/02/22 10:54 Freq: Status: Active Protocol: Document 09/06/22 16:01 TH (Rec: 09/06/22 16:10 TH [id number]) Out-Patient Physical Therapy Visit Information Visit Information Visit Type Treatment Note Visit Start Time 03:15 Visit Stop Time 04:00 Total Visit Minutes 45 Visit Number 9 Number of FURNITURE MOVER HELPER Visits 0 PT-OP-B Current Condition Start: 08/02/22 10:54 Freq: Status: Active Protocol: Document 08/02/22 15:09 TH (Rec: 08/02/22 16:21 TH [id number]) Current Condition History of Current Condition Current Complaints Lower back, right sciatica and right knee pain Prior Functional Status Baseline Function- ADL's Independent Baseline Function- Recreation/Hobbies IND though pain prevents pt. from doing things he enjoys such as biking, hiking. Current Functional Impairments (Reported) Functional Limitations- ADL's IND though has lower back pain . Functional Limitations- Mobility/Gait Prolonged sitting, standing bother symptoms. Functional Limitations- Recreation/ bikes, hikes Hobbies PT-OP-C Subjective Start: 08/02/22 10:54 Freq: Status: Active Protocol: Document 09/06/22 16:01 TH (Rec: 09/06/22 16:10 TH [id number]) OP-PT Subjective Patient Comments Patient Comments Pt states he has been feeling better and thinks HEP has been helping. He has less joint pain and less pain post work activities. Patient Reported Progress Improving PT-OP-G Mobility & Gait Start: 08/02/22 10:54 Freq: Status: Active Protocol: Document 08/02/22 15:09 TH (Rec: 08/02/22 16:21 TH [id number]) OP Gait Assessment Comments Gait Comments Decreased lumbar rotation bilaterally when advacing LE forward. PT-OP-K Range of Motion Start: 08/02/22 10:54 Freq: Status: Active Protocol: Document 09/06/22 16:01 TH (Rec: 09/06/22 16:10 TH [id number]) Knee Goniometric Range of Motion Knee Right Comments Extension: -4 right PT-OP-Q Treatments Start: 08/02/22 10:54 Freq: Status: Active Protocol: Document 09/06/22 16:01 TH (Rec: 09/06/22 16:10 [id number]) Therapeutic Exercises Other Exercises goblet squats Comments 1 x 10 with TA activ. HS stretch Comments x 3 30 sec holds bilat hamstring sets Comments 3 x 10 Manual Therapy Treatment Manual Techniques Manual Stretches Comments Piriformis bilat. Tack and stretch Comments right distal HS IASTM Comments right distal HS PT-OP-T Assessment and Plan Start: 08/02/22 10:54 Freq: Status: Active Protocol: Document 09/06/22 16:01 TH (Rec: 09/06/22 16:10 [id number]) Physical Therapy Assessment Goals Two Impairment Difficult to walk longer distances. Short Term Goal (STG) Pt will be able to ambulate >= 2 miles with pain < =3/10. STG Duration 6 weeks Insole Toe Snipping Machine Operator Goal (LTG) Pt will be able to ambulate 5 miles with minimal to no pain. One Impairment Difficult to sit/stand for prolonged periods of time. Short Term Goal (STG) Pt will be able to sit/stand for > = 30 min wigth pain > = 3/10. STG Duration 6 weeks Insole Toe Snipping Machine Operator Goal (LTG) Pt will be able to sit/stand > 45 min with minimal to no lower back/sciatic pain. LTG Duration 12 weeks Assessment Summary Assessment Pt making good gains with improving lower back/LE flexibility. He has been activating TA with squat activities at work and feels this has been helping with pain. Will likely dc pt in 1- 2 visits after finalizing HEP. Physical Therapy Plan Frequency and Duration Frequency of Treatment 1x/Week Duration of treatment (weeks) 12 Plan of Care Start Date 08/02/22 Plan of Care End Date 10/25/22 Therapeutic Interventions Therapeutic Interventions Gait Training,Home Exercise Program,Joint Mobilizations, Manual Therapy,Neuromuscular Re-education,Patient/Caregiver Education,Self-Care/Home Management,Soft Tissue Mobilization,Taping, Therapeutic Activities, Therapeutic Exercises Modalities Cold Pack/Ice Massage,Electric Stimulation,Hot Packs, Ultrasound Next Visit Focus/Plan Next Visit Plan Leg press Singleleg squats
--- NOTE | 2022-09-22 16:17 | PT.OPDS ---
Current Diagnoses Polyneuropathy, unspecified (09/22/22) Other chronic pain (09/22/22) Pain in unspecified knee (09/22/22) Low back pain, unspecified (09/22/22) Visit Care Team Role Provider Type Shaggy Boyd MD Attending Provider Physician Family Provider Primary Care Provider Referring Provider Specialty: [facility] Practice Address: [address] [place] [address] Email: [email or web address] Visit Number Visit Number 10 Discharge Summary PT-OP-B Current Condition Start: 08/02/22 10:54 Freq: Status: Active Protocol: Document 08/02/22 15:09 TH (Rec: 08/02/22 16:21 TH [id number]) Current Condition History of Current Condition Current Complaints Lower back, right sciatica and right knee pain Prior Functional Status Baseline Function- ADL's Independent Baseline Function- Recreation/Hobbies IND though pain prevents pt. from doing things he enjoys such as biking, hiking. Current Functional Impairments (Reported) Functional Limitations- ADL's IND though has lower back pain . Functional Limitations- Mobility/Gait Prolonged sitting, standing bother symptoms. Functional Limitations- Recreation/ bikes, hikes Hobbies PT-OP-C Subjective Start: 08/02/22 10:54 Freq: Status: Active Protocol: Document 09/22/22 15:20 TH (Rec: 09/22/22 16:17 TH [id number]) OP-PT Subjective Patient Comments Patient Comments Pt states that overall symptoms have improved. He has been able to do his daily activities without issue. Patient Reported Progress Improving PT-OP-G Mobility & Gait Start: 08/02/22 10:54 Freq: Status: Active Protocol: Document 08/02/22 15:09 TH (Rec: 08/02/22 16:21 TH [id number]) OP Gait Assessment Comments Gait Comments Decreased lumbar rotation bilaterally when advacing LE forward. PT-OP-K Range of Motion Start: 08/02/22 10:54 Freq: Status: Active Protocol: Document 09/06/22 16:01 TH (Rec: 09/06/22 16:10 TH [id number]) Knee Goniometric Range of Motion Knee Right Comments Extension: -4 right PT-OP-T Assessment and Plan Start: 08/02/22 10:54 Freq: Status: Active Protocol: Document 09/22/22 15:20 TH (Rec: 09/22/22 16:17 TH [id number]) Physical Therapy Assessment Goals Two Impairment Difficult to walk longer distances. Short Term Goal (STG) Pt will be able to ambulate >= 2 miles with pain < =3/10. STG Duration 6 weeks MET Prosthetic Lab Technician Goal (LTG) Pt will be able to ambulate 5 miles with minimal to no pain. One Impairment Difficult to sit/stand for prolonged periods of time. Short Term Goal (STG) Pt will be able to sit/stand for > = 30 min wigth pain > = 3/10. STG Duration 6 weeks Prosthetic Lab Technician Goal (LTG) Pt will be able to sit/stand > 45 min with minimal to no lower back/sciatic pain. LTG Duration 12 weeks MET Assessment Summary Assessment Pt has made excellent progress . Right knee extension is near normal leading to increased ability to range right hip. Posture has improved to a more aligned position and pt's symptoms are now minimal. Pt has been given guideline to progress with exercise. He has Met all goals and has been dc from PT. Physical Therapy Plan Frequency and Duration Frequency of Treatment 1x/Week Duration of treatment (weeks) 12 Plan of Care Start Date 08/02/22 Plan of Care End Date 10/25/22 Therapeutic Interventions Therapeutic Interventions Gait Training,Home Exercise Program,Joint Mobilizations, Manual Therapy,Neuromuscular Re-education,Patient/Caregiver Education,Self-Care/Home Management,Soft Tissue Mobilization,Taping, Therapeutic Activities, Therapeutic Exercises Modalities Cold Pack/Ice Massage,Electric Stimulation,Hot Packs, Ultrasound Discharge Physical Therapy Discharge Comments See assessment for details
== END 2022-09-26 14:17 | disposition home or self-care (01) ==
LOC: PHYS 15:15
PROVIDERS: Family Provider Family Medicine; PCP Family Medicine; Referring Provider Family Medicine; Visit Provider Family Medicine
DX: M25.569 Pain in unspecified knee (principal); G62.9 Polyneuropathy, unspecified; G89.29 Other chronic pain; M54.50 Low back pain, unspecified
CPT/HCPCS: 97035; 97110; 97140; 97161; 97530

== ENCOUNTER → 2023-06-23 19:29 | Outpatient (CLI) | payer OTHER, SELFPAY ==
--- NOTE | 2023-06-23 19:35 | DI.RAD.S_ITS ---
PROCEDURE: XR CHEST 2V INDICATIONS: Coughing x 12 days TECHNIQUE: 2 views of the chest were acquired. COMPARISON: [facility], , CHEST 2 VIEW, 01/23/2015, 11:57. FINDINGS: Surgical changes and devices: None. Lungs and pleura: Lungs are clear. No pleural effusions or pneumothorax. Mediastinum: Mediastinal contours are normal. Heart size is normal. Bones and chest wall: No suspicious bony abnormalities. Soft tissues appear unremarkable. IMPRESSION: No acute cardiopulmonary abnormality is seen. Dictated by: Chelsey Bojorquez M.D. on 06/26/2023 at 0:55 Approved by: Chelsey Bojorquez M.D. on 06/26/2023 at 0:57
== END ==
LOC: RAD 19:33
PROVIDERS: Family Provider Family Medicine; PCP Family Medicine; Referring Provider Physician Assistant; Visit Provider Physician Assistant
DX: R05.9 Cough, unspecified (principal)
CPT/HCPCS: 71046

== ENCOUNTER → 2023-06-24 11:19 | Outpatient (CLI) | payer OTHER, SELFPAY ==
[2023-06-24 13:06] LABS: Add Manual Diff / Slide Review NO; Basophils Absolute Auto 100 /uL (0-100); Basophils Percent Auto 0.9 % (0-2); Eosinophils Absolute Auto 400 /uL (0-450); Eosinophils Percent Auto 5.5 % (2-4); Hematocrit 40.6 % (41-53); Lymphocytes Absolute Auto 1400 /uL (1100-4500); Lymphocytes Percent Auto 21.4 % (25-40); Mean Corpuscular HGB Conc 34.4 % (30-36); Mean Corpuscular Hemoglobin 28.9 PG (26-34); Mean Corpuscular Volume 83.9 fL (80-100); Monocytes Absolute Auto 400 /uL (0-900); Monocytes Percent Auto 6.4 % (3-14); Neutrophils Absolute Auto 4400 /uL (1500-7000); Neutrophils Percent Auto 65.8 % (50-75); Platelet Count 242 X10^3/uL (150-400); Red Blood Cell Count 4.84 X10^6/uL (4.5-5.9); Red Cell Distribution Width 14.1 % (11.6-14.8); White Blood Cell Count 6.7 X10^3/uL (4.5-11.0)
== END ==
LOC: LAB 11:20
PROVIDERS: Family Provider Family Medicine; PCP Family Medicine; Referring Provider Family Medicine; Visit Provider Family Medicine
DX: D64.9 Anemia, unspecified (principal)
CPT/HCPCS: 36415; 85025

== ENCOUNTER → 2023-08-24 07:39 | Outpatient (CLI) | payer OTHER, SELFPAY ==
[2023-08-24 09:10] LABS: Alanine Aminotransferase 36 IU/L (<50); Albumin 4.3 g/dL (3.5-5.0); Albumin Globulin Ratio 1.5 (1.0-2.8); Alkaline Phosphatase 77 U/L (38-126); Aspartate Aminotransferase 38 IU/L (17-59); Bilirubin Total 1.1 mg/dL (0.2-1.3); Blood Urea Nitrogen 15 mg/dL (9-20); Calcium 9.3 mg/dL (8.4-10.2); Carbon Dioxide 29 mmol/L (22-32); Chloride 105 mmol/L (98-107); Cholesterol 197 mg/dL (140-199); Estimated Glomerular Filt Rate > 60 mL/min (>60); Globulin 2.8 g/dL (1.7-4.1); Glucose 91 mg/dL (80-110); HDL Cholesterol 51 mg/dL (40-60); HEMOLYSIS < 15 (0-50); LDL Cholesterol Calculated 125 mg/dL (<100); Potassium 4.4 mmol/L (3.4-5.1); Sodium 139 mmol/L (137-145); Total Protein 7.1 g/dL (6.3-8.2); Triglycerides 103 mg/dL (35-150)
[2023-08-24 09:37] LABS: Prostate Specific Antigen Scrn 2.44 ng/mL (0.1-4.0)
[2023-08-25 04:27] LABS: Apolipoprotein B 106 mg/dL (<90)
== END ==
LOC: LAB 07:39
PROVIDERS: Family Provider Family Medicine; PCP Family Medicine; Referring Provider Family Medicine; Visit Provider Family Medicine
DX: Z12.5 Encounter for screening for malignant neoplasm of prostate (principal); D64.9 Anemia, unspecified; E78.2 Mixed hyperlipidemia; G62.9 Polyneuropathy, unspecified
CPT/HCPCS: 36415; 80053; 80061; 82172; G0103

== ENCOUNTER → 2023-08-29 10:16 | Outpatient (CLI) | payer OTHER, SELFPAY ==
--- NOTE | 2023-08-29 10:18 | DI.RAD.S_ITS ---
PROCEDURE: XR LUMBAR SPINE MIN 4V INDICATIONS: chronic back pain with radiculopathy not improved with PT TECHNIQUE: 5 views of the lumbar spine were acquired, including bilateral oblique views. COMPARISON: [facility], , XR LUMBAR SPINE MIN 4V, 05/24/2022, 17:09. FINDINGS: Bones: 5 nonrib-bearing vertebrae are present. There is normal bony alignment. There is multilevel facet arthropathy, worse at L4-5 and L5-S1. Multilevel disc height loss with degenerative endplate changes and spurring is present. This is most pronounced at L5-S1. No vertebral body compression fractures. No suspicious bony lesions. Soft tissues: Overlying bowel gas pattern is normal. No suspicious soft tissue calcifications. Surgical clips projecting over the right pelvis. Atherosclerotic vascular calcifications. Oblique images: Right pars interarticularis defect, better visualized on prior exam. IMPRESSION: Redemonstration of multilevel degenerative changes of the lumbar spine, most pronounced at L5-S1. Dictated by: Adriel Melara M.D. on 08/29/2023 at 14:02 Approved by: Adriel Melara M.D. on 08/29/2023 at 14:04
--- NOTE | 2023-08-29 10:18 | DI.RAD.S_ITS ---
PROCEDURE: XR FOOT LT MIN 3V INDICATIONS: left foot swelling and pain TECHNIQUE: 3 views of the foot were acquired. COMPARISON: None. FINDINGS: Bones: No fractures or dislocations. No suspicious bony lesions. Mild interphalangeal joint degeneration. Plantar and posterior calcaneal enthesophytes. Soft tissues: No tibiotalar joint effusion. Achilles tendon appears normal. IMPRESSION: No acute osseous abnormalities. Dictated by: Adriel Melara M.D. on 08/29/2023 at 14:05 Approved by: Adriel Melara M.D. on 08/29/2023 at 14:05
== END ==
PROVIDERS: Family Provider Family Medicine; PCP Family Medicine; Referring Provider Family Medicine; Visit Provider Family Medicine
DX: M54.41 Lumbago with sciatica, right side (principal); M54.42 Lumbago with sciatica, left side; M47.816 Spondylosis without myelopathy or radiculopathy, lumbar region; M47.817 Spondylosis without myelopathy or radiculopathy, lumbosacral region; M19.072 Primary osteoarthritis, left ankle and foot; M79.672 Pain in left foot; G62.9 Polyneuropathy, unspecified; M79.89 Other specified soft tissue disorders; G89.29 Other chronic pain
CPT/HCPCS: 72110; 73630

== ENCOUNTER 2023-11-30 09:27 | Day surgery (SDC) | payer OTHER, SELFPAY ==
--- NOTE | 2023-11-30 | PATH_ITS ---
[facility] Accession Number: [id number] No. of containers..01 Tissue . 01 Material submitted: . colon - CECAL POLYP . 01 Diagnosis: CECAL POLYP, BIOPSY: Colonic mucosa with benign lymphoid aggregates. [facility] 12/05/2023 1433 Local . 01 Electronically signed: . Quita Hawthorne MD, Pathologist NPI- [id number] . 01 Gross description: . CECAL POLYP: Received in formalin is 1 fragment(s) of tamez, soft tissue measuring 0.7 x 0.3 x 0.3 cm submitted entirely in 1 cassette(s) /JOSE J 12/01/2023 1835 Local . 01 Pathologist provided ICD-10: K63.89 . 01 CPT . 483933 Specimen Comment: A courtesy copy of this report has been sent to [phone] Performed at: [address] [facility] [address], [place], [place] [id number] MD Jayce Lew MD Phone: [phone]
[2023-11-30 10:06] VITALS: BP 138/73; PULSE 47; RESP 16; TEMP 36.1; O2SAT 98
[2023-11-30] MEDS: LACTATED RINGERS 1,000 ML 42 ML IV (10:16)
--- NOTE | 2023-11-30 10:55 | P.HP_ITS ---
History of Present Illness History of Present Illness Date Patient Seen: 11/30/23 Time Patient Seen: 10:56 Chief complaint: Colonoscopy Narrative: Augie is a 68-year-old man who is here for a colonoscopy. He believes his last colonoscopy was about 20 years ago. No family history of colon cancer. [facility] Medical History Fracture (~1967) Plantar warts (~2015) Acne (~1971) Melanoma Kidney stones Surgical History Anesthesia History of right knee surgery Status post appendectomy Social History Smoking Status: Former smoker alcohol intake: never Meds Home Medications and Allergies Allergies Allergy/AdvReac Type Severity Reaction Status Date / Time No Known Drug Allergies Allergy Verified 08/29/23 09:19 Exam Vital Signs (past 8 hours): - 11/30/23 10:06 Temperature 96.9 F L Pulse Rate 47 L Respiratory Rate 16 Blood Pressure 138/73 Pulse Oximetry 98 Oxygen Delivery Method Room Air Oxygen Delivery Method Room Air Const General: healthy appearing Resp Effort & Inspection: normal respiratory effort Assessment & Plan Assessment and plan (1) Colon cancer screening: Status: Acute Plan We reviewed the risks and benefits of colonoscopy for colon cancer screening and he would like to proceed.
--- NOTE | 2023-11-30 12:04 | PM.OP.COLON ---
Operative Date/Time/Diagnoses Date of procedure: 11/30/23 Time of procedure: 12:04 Pre-op diagnosis: Colon cancer screening Post-op diagnosis: same Procedure & Clinicians Study performed: Colonoscopy Surgeon: Ed Mercedes Procedure Notes Procedure in detail: Surgeon: Ed Mercedes MD Anesthesia: Nikki Hitchcock DO Procedure: The patient was brought to the endoscopy suite, placed in left lateral decubitus position. The patient was connected to monitoring devices. A time-out was performed. Sedation was administered. Once the patient was adequately sedated, a digital rectal exam was performed and was normal. The scope was then inserted and advanced to the cecum where the appendiceal orifice was identified and photographed. The scope was then slowly withdrawn over greater than 6 minutes. The mucosa was thoroughly inspected. There was a 3 mm polyp in the cecum removed with a cold snare. No other abnormalities were found. The scope was retroflexed in the rectum. No other abnormalities were seen. The scope was straightened and removed. The patient was awakened and brought to recovery. Scope withdrawal time: 11 minutes Sedation time: 16 minutes EBL: 3 mL Findings: 3 mm cecal polyp Post-procedure Disposition: PACU
[2023-11-30 12:05] VITALS: BP 106/64; PULSE 56; RESP 16; TEMP 36.2; O2SAT 97
[2023-11-30 12:10] VITALS: BP 106/64; PULSE 45; RESP 16; O2SAT 97
[2023-11-30 12:15] VITALS: BP 107/66; PULSE 45; RESP 14; O2SAT 97
== END 2023-11-30 13:00 | disposition home or self-care (01) ==
PROVIDERS: Family Provider Family Medicine; PCP Family Medicine; Referring Provider Surgery; Visit Provider Surgery
PROC: 0DJD8ZZ Inspection of Lower Intestinal Tract, Via Natural or Artificial Opening Endoscopic (ICD-10-PCS; CPT 45378; principal; 2023-11-30 10:15)
DX: Z12.11 Encounter for screening for malignant neoplasm of colon (principal); K63.5 Polyp of colon
CPT/HCPCS: 45385; J2704

== ENCOUNTER → 2025-04-03 06:45 | Outpatient (CLI) | payer OTHER, SELFPAY ==
[2025-04-03 08:05] LABS: Add Manual Diff / Slide Review NO; Hematocrit 43.7 % (41-53); Hemoglobin 14.7 g/dL (13.5-17.5); Lymphocytes Absolute Auto 1100 /uL (1100-4500); Mean Corpuscular HGB Conc 33.6 % (30-36); Mean Corpuscular Hemoglobin 28.6 PG (26-34); Mean Corpuscular Volume 85.2 fL (80-100); Platelet Count 200 X10^3/uL (150-400)
[2025-04-03 08:33] LABS: Cholesterol 176 mg/dL (140-199); HDL Cholesterol 57 mg/dL (40-60); Triglycerides 92 mg/dL (35-150)
[2025-04-03 09:01] LABS: TSH w/ Reflex to FT4 2.15 uIU/mL (0.47-4.68)
[2025-04-03 09:29] LABS: Hemoglobin A1C% w Est Avg Glu 5.6 % (4.0-6.0)
[2025-04-08 07:09] LABS: Percent Free Testosterone 2.53 % (1.50-4.20)
== END ==
PROVIDERS: Family Provider Family Medicine; PCP Family Medicine; Referring Provider Family Medicine; Visit Provider Family Medicine
DX: R68.82 Decreased libido (principal); N52.9 Male erectile dysfunction, unspecified; Z12.5 Encounter for screening for malignant neoplasm of prostate; D64.9 Anemia, unspecified; E78.2 Mixed hyperlipidemia; Z13.29 Encounter for screening for other suspected endocrine disorder; G62.9 Polyneuropathy, unspecified
CPT/HCPCS: 36415; 80061; 82172; 83036; 84402; 84403; 84443; 85025; G0103

== ENCOUNTER → 2025-05-16 07:16 | Outpatient (CLI) | payer OTHER, SELFPAY ==
[2025-05-16 09:24] LABS: Appearance Urine UA CLEAR; Bilirubin Urine UA NEGATIVE (NEGATIVE); Color Urine UA YELLOW; Glucose Urine UA NEGATIVE (Negative); Ketones Urine UA NEGATIVE (NEGATIVE); Leukocyte Esterase Urine UA NEGATIVE (NEGATIVE); Nitrite Urine UA NEGATIVE (Negative); Occult Blood Urine UA 1+ (Negative); Protein Urine UA NEGATIVE (Negative); Specific Gravity Urine UA >=1.030 (1.000-1.035); Urobilinogen Urine UA 0.2 E.U./dL (0.2); pH Urine UA 5.5 (4.5-8.0)
[2025-05-16 09:49] LABS: Prostate Specific Antigen 4.93 ng/mL (0.10-4.00)
[2025-05-16 09:52] LABS: Culture Indicated Urine Cult Not Indicated
== END ==
PROVIDERS: PCP Family Medicine; Referring Provider Family Medicine; Visit Provider Family Medicine
DX: N40.0 Benign prostatic hyperplasia without lower urinary tract symptoms (principal); R68.82 Decreased libido; N40.1 Benign prostatic hyperplasia with lower urinary tract symptoms; N13.8 Other obstructive and reflux uropathy; N50.811 Right testicular pain; N50.812 Left testicular pain; R97.20 Elevated prostate specific antigen [PSA]
CPT/HCPCS: 36415; 81001; 84153